=== PATIENT | female | born 1955 | race Caucasian/White ===

== ENCOUNTER 2017-02-15 09:58 | Emergency (ER) | payer OTHER ==
[~2017-02-15] VITALS: Ht 172.7 cm; Wt 83.0 kg
[2017-02-15 10:03] VITALS: BP 83/53; PULSE 105; RESP 16; TEMP 98.2; O2SAT 95
[2017-02-15 10:19] VITALS: BP 82/53; PULSE 98; RESP 16; TEMP 98.6; O2SAT 98
[2017-02-15 10:27] VITALS: O2SAT 98
--- NOTE | 2017-02-15 10:29 | PD ---
HPI Chief Complaint: Cold / Flu Symptoms Time Seen by Provider: 10:22 Travel History International Travel<30 days: No Contact w/Intl Traveler<30days: No Traveled to known affect area: No History of Present Illness HPI Patient presents with complaints of cough fever and general malaise for 2-3 days. Positive recent travel. Unknown sick contacts. Denies any nausea vomiting or diarrhea. No new rashes. No tobacco exposure. No history of lung disease. States her blood pressure usually runs around 90/60. Complaints of feeling weak. 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 Estradiol 1 Mg Tab 1 Mg PO DAILY Pepcid AC (Famotidine) 20 Mg Tablet Celebrex (Celecoxib) 200 Mg Cap 200 Mg PO BID Review of Systems General / Constitutional: Positive: Fever Eyes: No: Visual changes HENT: No: Headaches Cardiovascular: No: Chest Pain or Discomfort Respiratory: Positive: Cough, Shortness of Breath Gastrointestinal: No: Abdominal Pain Genitourinary: No: Dysuria Musculoskeletal: No: Pain Skin: No Rash Neurologic: No: Weakness Psychiatric: No: Depression Endocrine: No: Polydipsia Hematologic/Lymphatic: No: Easy Bruising Physical Exam Narrative GENERAL: Well-nourished, well-developed patient. SKIN: Focused skin assessment warm/dry. HEAD: Normocephalic. EYES: No scleral icterus. No injection or drainage. NECK: Supple, trachea midline. No JVD or lymphadenopathy. CARDIOVASCULAR: Regular rate and rhythm without murmurs, gallops, or rubs. RESPIRATORY: Breath sounds equal bilaterally. No accessory muscle use. GASTROINTESTINAL: Abdomen soft, non-tender, nondistended. MUSCULOSKELETAL: No cyanosis, or edema. BACK: Nontender without obvious deformity. No CVA tenderness. Data Data Last Documented VS Vital Signs Date Time Temp Pulse Resp B/P (MAP) Pulse Ox O2 Delivery O2 Flow Rate FiO2 1/7/18 11:34 92 16 94/56 (69) 98 Room Air 02/15/17 10:19 98.6 Orders Orders Complete Blood Count With Diff (02/15/17 10:22) Comprehensive Metabolic Panel (02/15/17 10:22) Influenzae A/B Antigen (02/15/17 10:22) Blood Culture (02/15/17 10:22) Iv Access Insert/Monitor (02/15/17 10:22) Ecg Monitoring (02/15/17 10:22) Oximetry (02/15/17 10:22) Oxygen Administration (02/15/17 10:22) Chest, Single Ap (02/15/17 10:22) Sodium Chloride 0.9% Flush (Ns Flush) (02/15/17 10:30) Methylprednisolone So Succ Inj (Solumedr (02/15/17 10:30) Sepsis Workup Initiated (02/15/17 ) Lactic Acid Sepsis Protocol (02/15/17 10:22) Sodium Chlor 0.9% 1000 Ml Inj (Ns 1000 M (02/15/17 11:15) Labs Laboratory Tests Test 02/15/17 10:30 White Blood Count 8.2 TH/MM3 Red Blood Count 4.36 MIL/MM3 Hemoglobin 12.6 GM/DL Hematocrit 38.0 % Mean Corpuscular Volume 87.2 FL Mean Corpuscular Hemoglobin 29.0 PG Mean Corpuscular Hemoglobin Concent 33.3 % Red Cell Distribution Width 12.3 % Platelet Count 192 TH/MM3 Mean Platelet Volume 8.2 FL Neutrophils (%) (Auto) 90.4 % Lymphocytes (%) (Auto) 4.9 % Monocytes (%) (Auto) 3.8 % Eosinophils (%) (Auto) 0.7 % Basophils (%) (Auto) 0.2 % Neutrophils # (Auto) 7.4 TH/MM3 Lymphocytes # (Auto) 0.4 TH/MM3 Monocytes # (Auto) 0.3 TH/MM3 Eosinophils # (Auto) 0.1 TH/MM3 Basophils # (Auto) 0.0 TH/MM3 CBC Comment DIFF FINAL Differential Comment Blood Urea Nitrogen 16 MG/DL Creatinine 0.94 MG/DL Random Glucose 129 MG/DL Total Protein 6.3 GM/DL Albumin 3.0 GM/DL Calcium Level 7.8 MG/DL Alkaline Phosphatase 66 U/L Aspartate Amino Transf (AST/SGOT) 25 U/L Alanine Aminotransferase (ALT/SGPT) 26 U/L Total Bilirubin 0.5 MG/DL Sodium Level 136 MEQ/L Potassium Level 3.7 MEQ/L Chloride Level 105 MEQ/L Carbon Dioxide Level 23.2 MEQ/L Anion Gap 8 MEQ/L Estimat Glomerular Filtration Rate 61 ML/MIN Lactic Acid Level 1.9 mmol/L MDM Medical Decision Making Medical Screen Exam Complete: Yes Emergency Medical Condition: Yes Differential Diagnosis Bronchitis, pneumonia, influenza Narrative Course Assessment and plan discussed with patient and at bedside. Patient noted to be mildly hypotensive and tachycardic. Sepsis protocol initiated. Patient received fluids with improvement of symptoms. Influenza positive. Last 72 hours Impressions Chest X-Ray 02/15/17 1022 Signed Impressions: Service Date/Time: Wednesday, February 15, 2017 10:31 - CONCLUSION: No acute disease. Edis Fortune MD Diagnosis Primary Impression: Influenza Patient Instructions: General Instructions Additional Instructions: Rest fluids and Motrin, medications as prescribed. Encouraged frequent handwashing. Consider vitamin C and zinc to boost immune system. Follow-up with PCP. Return to emergency room with any onset of new symptoms. Med/Other Pt SpecificInfo: Prescription(s) given Scripts Guaifenesin-Codeine Liq (Cheratussin AC Liq) 100-10 Mg/5 Ml Syrp 5-10 ML PO Q4H Y for COUGH AND COLD SYMPTOMS, #120 ML 0 Refills Do not exceed 6 doses/24 hrs. Prov: Humberto Rosenthal MD 02/15/17 Oseltamivir (Tamiflu) 75 Mg Cap 75 MG PO BID for Mgmt Viral Infection for 5 Days, #10 CAP 0 Refills Prov: Humberto Rosenthal MD 02/15/17 Disposition: 01 DISCHARGE HOME Condition: Good Humberto Rosenthal MD Feb 15, 2017 10:29
[2017-02-15] MEDS ORDERED: VITA1000 PO (10:30)
[2017-02-15] MEDS ORDERED: SODIUM CHLORIDE 0.9% FLUSH 10 ML FLUSH IVF PRN (10:30)
[2017-02-15] MEDS ORDERED: VITATAB43 PO (10:30)
[2017-02-15] MEDS ORDERED: TEST30SO3 (10:30)
[2017-02-15] MEDS ORDERED: PEPC20TA11 (10:30)
[2017-02-15] MEDS ORDERED: ARMO30TA PO (10:30)
[2017-02-15] MEDS ORDERED: methylPREDNISolone SOD SUCC 125 MG/2 ML VIAL IV PUSH ONE (10:30)
[2017-02-15] MEDS ORDERED: ESTR1TAB PO (10:30)
[2017-02-15] MEDS ORDERED: CELE200C PO (10:30)
[2017-02-15 10:49] LABS: AUTOMATED NEUTROPHIL # 7.4 TH/MM3 (1.8-7.7); BASOPHIL % 0.2 % (0.0-2.0); EOSINOPHIL # 0.1 TH/MM3 (0-0.4); EOSINOPHIL % 0.7 % (0.0-4.0); HEMOGLOBIN 12.6 GM/DL (11.6-15.3); LYMPH % 4.9 % (9.0-44.0); LYMPHOCYTE # 0.4 TH/MM3 (1.0-4.8); MEAN CELL VOLUME 87.2 FL (80.0-100.0); MEAN CORPUSCULAR HGB CONC 33.3 % (32.0-36.0); MEAN PLATELET VOLUME 8.2 FL (7.0-11.0); MONO % 3.8 % (0.0-8.0); MONOCYTE # 0.3 TH/MM3 (0-0.9); NEUT % 90.4 % (16.0-70.0); PLATELET COUNT 192 TH/MM3 (150-450); RED BLOOD COUNT 4.36 MIL/MM3 (4.00-5.30); RED CELL DISTRIBUTION WIDTH 12.3 % (11.6-17.2); WHITE BLOOD COUNT 8.2 TH/MM3 (4.0-11.0)
--- NOTE | 2017-02-15 10:51 | RADRPT ---
EXAM DATE/TIME: 02/15/2017 10:31 [facility] COMPARISON: No previous studies available for comparison. INDICATIONS : Short of breath, cough, fever, chest pain MEDICAL HISTORY : None. SURGICAL HISTORY : None. ENCOUNTER: Initial ACUITY: 2 days PAIN SCORE: 6/10 LOCATION: Bilateral chest FINDINGS: A single view of the chest demonstrates the lungs to be symmetrically aerated without evidence of mas s, infiltrate or effusion. The cardiomediastinal contours are unremarkable. Osseous structures are intact. CONCLUSION: No acute disease. Edis Fortune MD on February 15, 2017 at 10:48 Board Certified Radiologist. This report was verified electronically.
[2017-02-15 10:56] LABS: CHLORIDE 105 MEQ/L (98-107); SODIUM (NA) 136 MEQ/L (136-145)
[2017-02-15 10:59] LABS: BICARBONATE 23.2 MEQ/L (21.0-32.0); CALCIUM 7.8 MG/DL (8.5-10.1); GLUCOSE,RANDOM 129 MG/DL (74-106)
[2017-02-15 11:00] LABS: BLOOD UREA NITROGEN 16 MG/DL (7-18)
[2017-02-15 11:02] LABS: ALT (GPT) 26 U/L (10-53)
[2017-02-15 11:03] LABS: AST (GOT) 25 U/L (15-37); CREATININE 0.94 MG/DL (0.50-1.00); GLOMERULAR FILTRATION RATE 61 ML/MIN (>89)
[2017-02-15 11:04] LABS: TOTAL BILIRUBIN ADULT 0.5 MG/DL (0.2-1.0); TOTAL PROTEIN 6.3 GM/DL (6.4-8.2)
[2017-02-15 11:06] LABS: ALKALINE PHOSPHATASE 66 U/L (45-117)
[2017-02-15] MEDS ORDERED: SODIUM CHLOR 0.9% 1000 ML INJ 1,000 ML IV ONE (11:15)
[2017-02-15 11:34] VITALS: BP 94/56; PULSE 92; RESP 16; O2SAT 98
[2017-02-15] MEDS ORDERED: OSEL75 PO (11:42)
[2017-02-15] MEDS ORDERED: CHERSYP2 PO (11:42)
== END 2017-02-15 12:00 | disposition home or self-care (01) ==
LOC: PHED 09:58
DX: J11.1 Influenza due to unidentified influenza virus with other respiratory manifestations (principal); R06.02 Shortness of breath; I95.9 Hypotension, unspecified; R00.0 Tachycardia, unspecified
CPT/HCPCS: 71045; 80053; 83605; 85025; 87040; 87804; 96374; 99284; J2930; J7030